=== PATIENT | female | born 1945 | race Two or more races ===

== ENCOUNTER 2022-11-03 13:25 | Emergency (ER) | payer OTHER ==
[~2022-11-03] VITALS: Ht 149.9 cm; Wt 59.9 kg
[2022-11-03] MEDS ORDERED: SIMVASTATIN80 MG PO (14:04)
[2022-11-03] MEDS ORDERED: CLONAZEPAM1 MG PO (14:04)
[2022-11-03] MEDS ORDERED: VASOTEC10 MG PO (14:04)
[2022-11-03] MEDS ORDERED: PEPCID AC20 MG PO (17:57)
[2022-11-03] MEDS ORDERED: DICY20TA PO (17:57)
[2022-11-03] MEDS ORDERED: ZOFRAN8 MG PO (17:57)
[2022-11-03] MEDS ORDERED: CIPRO500 MG PO (17:57)
== END 2022-11-03 18:05 | disposition home or self-care (01) ==
LOC: ER 13:25
PROVIDERS: Nurse Practitioner Family
DX: R10.31 Right lower quadrant pain (principal); K57.30 Diverticulosis of large intestine without perforation or abscess without bleeding; N28.1 Cyst of kidney, acquired; I10 Essential (primary) hypertension